=== PATIENT | female | born 1985 | race Caucasian/White ===

== ENCOUNTER 2017-01-02 09:30 | Inpatient (IN) | payer OTHER ==
[~2017-01-02] VITALS: Ht 162.6 cm; Wt 72.6 kg
[2017-01-02 09:48] VITALS: BP 118/70
[2017-01-02] MEDS ORDERED: PRENATAL TABLE1 EAC2 PO (09:49)
[2017-01-02 10:48] LABS: ABSOLUTE BASOPHIL COUNT 0.1 /CUMM (0.0-0.2); ABSOLUTE EOSINOPHIL COUNT 0.1 /CUMM (0.0-0.7); ABSOLUTE GRANULOCYTE CT 11.9 /CUMM (1.4-6.5); ABSOLUTE LYMPH COUNT 2.1 /CUMM (1.2-3.4); BASOPHIL % 0.4 % (0.0-2.0); GRANULOCYTE % 78.3 % (42.2-75.2); HEMATOCRIT 36.4 % (37-47); MEAN CORPUSCULAR HGB 30.3 PG (27.0-31.0); MEAN CORPUSCULAR HGB CONC 34.6 G/DL (33.0-37.0); MEAN CORPUSCULAR VOLUME 87.5 FL (81.0-99.0); MEAN PLATELET VOLUME 8.6 FL (7.4-10.4); PLATELET COUNT 278 /CUMM (130-400); RBC DISTRIBUTION WIDTH 13.6 % (11.5-14.5); RED BLOOD CELL CT 4.16 /CUMM (4.20-5.40); WHITE BLOOD CELL COUNT 15.3 /CUMM (4.8-10.8)
--- NOTE | 2017-01-02 12:17 | History & Physical ---
General Information and HPI MD Statement: I have seen and personally examined COURT HONG and documented this H&P. The patient is a 31 year old female at [41] weeks and [3] days gestation who presented with a chief complaint of [induction of labor]. Source of Information: patient, old records Exam Limitations: no limitations History of Present Illness: 31 YP LMP 03/18/2016 and DEBBIE 12/23/2016 is admitted @ 41 wks and 3/7 days for IOL for post dates Issues for 1.) Initially a smoker Quit @ 09/24 through the 2.) Lt axillry fullness (NEG U/S neg Angela loya) 3.) Gr B str + (pcn allergy - R Clinda, Eryth NR, S Vanco) - will try kefzol Allergies/Medications Allergies: Coded Allergies: Penicillins (HIVES 01/02/17) Home Med list Vit No.130/Iron/FA ( Tablet) 27 MG IRON-800 MCG TABLET 1 TAB PO DAILY PRENANCY (Reported) Compliance With Home Meds: GOOD 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 Para: 0 Last Menstrual Period: 03/18/2017 Estimated Delivery Date: 12/23/2016 Past 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 History: none Medical History Blood Transfusion Hx: No Neurological: NONE EENT: NONE Cardiovascular: NONE Respiratory: NONE Gastrointestinal: NONE Hepatic: NONE Renal: pass LT renal stone 2014 Musculoskeletal: NONE Psychiatric: NONE Endocrine: NONE Blood Disorders: NONE Cancer(s): NONE 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 Home Who Do You Live With? self Primary Language: Polish Smoking Status: Former Smoker ETOH Use: denies use Illicit Drug Use: denies illicit drug use Review of Systems Review of Systems: Currently negative for cardiac pulmonary GI complaints Exam & Diagnostic Data Last 24 Hrs of Vital Signs/I&O Vital Signs Date Time Temp Pulse Resp B/P Pulse O2 O2 Flow FiO2 Ox Delivery Rate 01/02 0948 99.277 88 16 118/70 99% RA 5'4" 160 BMI 27 Intake & Output 04/12 1600 01/02 0800 01/02 0000 Intake Total Output Total Balance Patient 160 lb Weight Obstetric Exam Wgt Gained During : 36 Pelvimetry: Should be okay for average size baby Dilation (cm): 1 Effacement (%): 90 Station: -1 Membranes: intact Fluid: unknown Fundal Height (cm): 39 Multiple Gestation? No Contractions: Occasional mild #1 - FHR Baseline: 140 Category: 1 Estimated Weight: 8 lbs. 2 oz. Presentation: Vertex Patient for Induction? Yes Zapien Score Zapien Score Response Value Cervix Position: mid-position 1 Cervix Consistency: soft 2 Cervix Effacement: >80% 3 Cervix Dilation: 1-2 cm 1 Cervix Station: -1 2 Total 9 Physical Exam General Appearance Alert, Oriented X3, Cooperative, No Acute Distress Skin No Significant Lesion Cardiovascular Regular Rate Lungs Normal Air Movement Abdomen Normal Bowel Sounds, Soft, No Tenderness, No Hepatospenomegaly, uterus nontender fundal height 39 cm's vertex presentation estimated weight 8 lbs. 2 oz. heart rate 130s to 140s category 1 mild occasional palpable contraction Neurological Normal Gait, Normal Speech Extremities No Tenderness/Swelling Reproductive (FEMALE) Normal female genitalia, no vaginal bleeding or leakage of fluid Labs Blood Type & Rh: B positive Antibody Screen: Negative Hct/Hgb & Platelets #1: 12.3/38.5 platelet count 295,000 Hct/Hgb & Platelets #2: 11.3/35.5 platelet count 281,000 Rubella: Immune VDRL #1: Negative VDRL #2: Negative HbsAg: Negative HIV #1: Negative HIV #2 Negative 1 Hr P 3 Hr PG: N/A Group B Strep: Positive, resistant to clindamycin, not tested for erythromycin sensitive to vancomycin Initial Ultrasound: 06/18/2016 size equal dates equals ultrasound at 10 weeks 2 days confirming DEBBIE Anatomy Ultrasound: Anatomy scan on 09/05/2016 size equals dates equals ultrasound 20 weeks 3/7 days normal anatomy cervix 4.1 cm Ultrasound for EFW: Estimated weight was performed on 11/28/2016 43rd percentile 6 lbs. 4 oz. Genetic Testing: Patient went for nuchal translucency screening at the [facility] on 06/19/2016 at 13 weeks 1/7 days she declined cell free DNA. She did go for maternal serum AFP testing which was negative on 07/09/2016 Last 24 Hrs of Labs/Dany: Laboratory Tests 01/02/17 0958: CBC w Diff NO MAN DIFF REQ, RBC 4.16 L, MCV 87.5, MCH 30.3, RDW 13.6, MPV 8.6, Gran % 78.3 H, Lymphocytes % 13.5 L, Monocytes % 6.8, Eosinophils % 1.0, Basophils % 0.4, Absolute Granulocytes 11.9 H, Absolute Lymphocytes 2.1, Absolute Monocytes 1.0 H, Absolute Eosinophils 0.1, Absolute Basophils 0.1, PUBS MCHC 34.6, Urinalysis LIGHT H, Urine Color YEL, Urine Clarity CLEAR, Urine pH 7.0, Ur Specific [place] 1.015, Urine Protein TRACE H, Urine Ketones NEG, Urine Nitrite NEG, Urine Bilirubin NEG, Urine Urobilinogen 0.2, Ur Leukocyte Esterase SMALL H, Ur Microscopic SEDIMENT EXAMINED, Urine RBC RARE, Urine WBC RARE, Ur Epithelial Cells FEW, Urine Bacteria MOD H, Urine Hemoglobin TRACE- LYSED, Urine Glucose NEG Assessment/Plan Assessment/Plan: Assessment 2 para 0 at 41-3/7 days for induction of labor due to postdates. Initial cervical exam shows her to be 1 cm 90% 0 to -1 station. Patient was consulted and counseled regarding induction of labor options. She was advised for misoprostol induction. Consent form was reviewed with the patient patient asked appropriate questions which were answered and patient signed consent form. Plan is for misoprostol induction. First misoprostol was placed at 10:30 on 01/02/2017. Plan is misoprostol today with careful monitoring patient may require a day to Pitocin induction. Plan is when she is either ruptured membranes or active labor would start for prophylaxis for her group B strep As Ranked By This Provider Problem List: 1. Post-dates 2. History of induction of labor 3. Mother positive for group B Streptococcus colonization Core Measures/Miscellaneous Venous Thromboembolism VTE Risk Factors: / VTE Contraindications: Abn Clotting Times (FALL RISKS) VTE Diagnosis: No Beta Fadia Is Beta Fadia a Home Med? No If No, Why Not? NOT INDICATED Antibiotics Is Patient on Antibiotics? Yes If Yes: prophylaxis Attending MD Review Statement Attending Statement Attending MD Statement: examined this patient, discussed with family, reviewed EMR data (avail), discussed w/nursing Attending Assessment/Plan: Mariya Martinez
--- NOTE | 2017-01-02 22:03 | PN- OBGYN ---
Surgical Brief Attending Note Brief Attending Note: @ 20:45 PT requesting "something else for pain" Pt "hoping" for epidural Previously she had utilized N2O, IV/IM Stadol x 2. FHR 120's Cat 1 contractions Q 2 to 3 min (one dose of Miso this AM @ 10:30) CX [address] Martinez (myself) was called @ home, updated and agreed to come in for the pt to be able to have the epidural A: Progress in labor Reassuring FHR tracing Plan: anesthesia called to come to L/D for epidural placement Heather Martinez MD
[2017-01-04 08:19] LABS: ABSOLUTE BASOPHIL COUNT 0.1 /CUMM (0.0-0.2); ABSOLUTE EOSINOPHIL COUNT 0.2 /CUMM (0.0-0.7); ABSOLUTE GRANULOCYTE CT 12.9 /CUMM (1.4-6.5); BASOPHIL % 0.4 % (0.0-2.0); EOSINOPHIL % 0.9 % (0-5); GRANULOCYTE % 75.4 % (42.2-75.2); MEAN CORPUSCULAR HGB CONC 33.3 G/DL (33.0-37.0); MEAN CORPUSCULAR VOLUME 90.1 FL (81.0-99.0); MEAN PLATELET VOLUME 8.1 FL (7.4-10.4); PLATELET COUNT 234 /CUMM (130-400); RBC DISTRIBUTION WIDTH 13.7 % (11.5-14.5); RED BLOOD CELL CT 3.48 /CUMM (4.20-5.40); WHITE BLOOD CELL COUNT 17.2 /CUMM (4.8-10.8)
[2017-01-04 08:26] LABS: HEMATOCRIT 31.3 % (37-47)
[2017-01-04] MEDS ORDERED: IBUPROFEN800 M1 PO (12:24)
--- NOTE | 2017-01-04 12:27 | Labor & Delivery Summary ---
Delivery Summary Vaginal Delivery: Vaginal: vertex spontaneous vaginal delivery Episiotomy/Lacerations: Episiotomy/Lacerations: laceration Type: partial 3rd degree -midline Repair: 3 O vycril Anesthesia: epidural / local Placenta: Placenta: spontanteous, normal, 3 vessel Anesthesia: epidural Cord PH Value: n/a Baby's Weight: 7# 14 female Apgars - 1 Min: 9 Apgars - 5 Min: 9
--- NOTE | 2017-01-04 12:31 | PN- Post Delivery/GYN ---
Subjective Subjective: doing well no complaints Review of Systems: neg for cardiac pulmonary GI complaints Objective Last 24 Hrs of Vital Signs/I&O Afebrile vSS Physical Exam General Appearance Alert, Oriented X3, Cooperative, No Acute Distress Skin No Significant Lesion Cardiovascular Regular Rate Lungs Normal Air Movement Abdomen Normal Bowel Sounds, Soft, No Tenderness, No Hepatospenomegaly, Uterus firm midline nontender 2 FB below umbilicus nontender Neurological Normal Gait, Normal Speech Reproductive (FEMALE) Normal female genitalia, avge lochia Current Medications: Current Medications Sig/Dante Start time Last Medication Dose Route Stop Time Status Admin Acetaminophen 650 MG Q4P PRN 01/03 715 AC PO Docusate Sodium 100 MG BID 01/03 1000 AC 01/03 PO 2045 Ibuprofen 800 MG Q6P PRN 01/03 715 AC 01/04 PO 0824 Oxycodone/ 1 TAB Q3P PRN 01/03 715 AC 01/04 Acetaminophen PO 0825 Last 24 Hrs of Labs/Dany: Laboratory Tests 01/04/17 0744: CBC w Diff NO MAN DIFF REQ, RBC 3.48 L, MCV 90.1, MCH 30.0, RDW 13.7, MPV 8.1, Gran % 75.4 H, Lymphocytes % 17.6 L, Monocytes % 5.7, Eosinophils % 0.9, Basophils % 0.4, Absolute Granulocytes 12.9 H, Absolute Lymphocytes 3.0, Absolute Monocytes 1.0 H, Absolute Eosinophils 0.2, Absolute Basophils 0.1, PUBS MCHC 33.3 Assessment/Plan Assessment/Plan stable ppd#1 routine PP care Reg diet encourage ambulation Problem List: 1. History of induction of labor 2. Mother positive for group B Streptococcus colonization 3. Term of female 4. Post-dates Attending MD Review Statement Attending Statement Attending MD Statement: examined this patient, discussed with family, reviewed EMR data (avail), discussed with nursing Attending Assessment/Plan: Heather Martinez MD
--- NOTE | 2017-01-05 11:53 | PN- Post Delivery/GYN ---
Subjective Subjective: DOING WELL NO COMPLAINTS READY FOR DISCHARGE Review of Systems: NEG FOR CARDIAC GI COMPLAINTS Objective Last 24 Hrs of Vital Signs/I&O AFEBRILE VSS Physical Exam General Appearance Alert, Oriented X3, Cooperative, No Acute Distress Cardiovascular Regular Rate Lungs Normal Air Movement Abdomen Normal Bowel Sounds, Soft, No Tenderness, No Hepatospenomegaly, UTERUS FIRM NONTENDER 3 FB BELOW UMBILICUS AVGE LOCHIA Neurological Normal Gait, Normal Speech Reproductive (FEMALE) Normal female genitalia, AVGE LOCHIA Current Medications: Current Medications Sig/Dante Start time Last Medication Dose Route Stop Time Status Admin Acetaminophen 650 MG Q4P PRN 01/03 0715 AC PO Docusate Sodium 100 MG BID 01/03 1000 AC 01/04 PO 1402 Ibuprofen 800 MG .STK-MED ONE 01/04 1927 DC PO 01/04 1928 Ibuprofen 800 MG .STK-MED ONE 01/04 1346 DC PO 01/04 1347 Ibuprofen 800 MG Q6P PRN 01/03 0715 AC 01/05 PO 0653 Oxycodone/ 1 TAB Q3P PRN 01/03 0715 AC 01/04 Acetaminophen PO 0825 Assessment/Plan Assessment/Plan STABLE PPD #2 DISCHARGE HOME ROUTINE PP CARE 2 WK AND 6 WK CHECKS ZAHRA MONTENEGRO Problem List: 1. Post-dates 2. History of induction of labor 3. Mother positive for group B Streptococcus colonization 4. Term of female Attending MD Review Statement Attending Statement Attending Statement: examined this patient, discussed with family, reviewed EMR data (avail), discussed with nursing Attending Assessment/Plan: Heather MONTENEGRO MD
== END 2017-01-05 11:58 | DRG 775 ==
LOC: GNO 09:30
PROVIDERS: Obstetrics & Gynecology; ADMIT Obstetrics & Gynecology
PROC: 3E033VJ Introduction of Other Hormone into Peripheral Vein, Percutaneous Approach (ICD-10-PCS; principal; 2017-01-03)
PROC: 0DQR0ZZ Repair Anal Sphincter, Open Approach (ICD-10-PCS; principal; 2017-01-03)
PROC: 10E0XZZ Delivery of Products of Conception, External Approach (ICD-10-PCS; principal; 2017-01-03)
DX: O48.0 Post-term pregnancy (principal); O71.4 Obstetric high vaginal laceration alone; Z3A.41 41 weeks gestation of pregnancy; Z37.0 Single live birth; O99.824 Streptococcus B carrier state complicating childbirth
CPT/HCPCS: GNOP; GNOS; 36415; 81001; 84112; J0131; J0595; J0690; J1885; J7120